=== PATIENT | female | born 2000 | race African-American/Black ===

== ENCOUNTER 2022-07-31 22:25 | Emergency (ER) | payer BC ==
[2022-07-31 22:34] VITALS: BP 145/84; PULSE 75; RESP 18; TEMP 98.3; BMI 40.0
[2022-07-31] MEDS ORDERED: DOXYCYCLINE HYCLATE 100 MG CAPSULE PO ONE (22:59)
[2022-07-31] MEDS ORDERED: HYDROCORTISONE 2.5% LOTION - 1 BOTTLE TP ONE (23:00)
== END 2022-08-01 00:10 | disposition home or self-care (01) ==
LOC: JER 22:25
DX: R22.32 Localized swelling, mass and lump, left upper limb (principal); R21 Rash and other nonspecific skin eruption; S60.562A Insect bite (nonvenomous) of left hand, initial encounter; L08.89 Other specified local infections of the skin and subcutaneous tissue; W57.XXXA Bitten or stung by nonvenomous insect and other nonvenomous arthropods, initial encounter
CPT/HCPCS: 99283-25